=== PATIENT | female | born 1975 | race Caucasian/White ===

== ENCOUNTER 2017-01-26 20:44 | Observation (INO) | payer OTHER ==
[~2017-01-26] VITALS: Ht 154.9 cm; Wt 63.2 kg
[~2017-01-26 20:44] MED LIST: ATIVAN1 MG PO; CARAFATE1 GM PO; Cipro PO; LEVAQUIN500 MG PO; LORTAB 5-325 M1 EACH PO; MACROBID100 MG PO; NORCO 5/3251 TABLET PO; TAMIFLU75 MG PO; Vicodin,Lortab 5/500 PO; ZOFRAN ODT4 MG PO; ZOFRAN4 MG PO
[2017-01-26 22:04] LABS: HEMATOCRIT 39.8 % (36.0-46.0); MCH 28.8 PG (29.0-34.0); MCHC 33.2 G/DL (30.0-36.0); MCV 86.7 FL (83-99); MEAN PLAT.VOLUME 9.4 uM^3 (9.5-12.4); PLATELET COUNT 309 K/uL (156-360); RBC DIS.WIDTH-SD 38.4 % (39-53); RED BLOOD COUNT 4.59 M/uL (3.80-5.20); WHITE BLOOD COUNT 7.4 K/uL (4.1-10.2)
[2017-01-26 22:19] LABS: CHLORIDE 106 mEq/L (99-109); POTASSIUM 4.5 mEq/L (3.7-5.4); SODIUM 140 mEq/L (136-147)
[2017-01-26 22:21] LABS: GLUCOSE 78 mg/dL (70-99)
[2017-01-26 22:22] LABS: ANION GAP 8 MEQ/L (2-14)
[2017-01-26 22:23] LABS: TOTAL BILIRUBIN 0.7 mg/dL (0.0-1.0)
[2017-01-26 22:24] LABS: ALKALINE PHOSPHATASE 75 IU/L (3-129)
[2017-01-26 22:25] LABS: GFR ESTIMATE (CALCULATED) > 59 mL/min/
[2017-01-26 22:26] LABS: UREA NITROGEN (BUN) 13 mg/dL (9-23)
[2017-01-26 22:28] LABS: LIPASE 114 U/L (1.0-51.0)
[2017-01-26 22:39] LABS: AMYLASE 108 IU/L (1-118); QUANTITATIVE HCG < 4.0 MIU/ML
[2017-01-26] MEDS ORDERED: TYLENOL EXTRA500 MG PO (23:41)
[2017-01-27] VITALS (7 sets, daily range): BP systolic 107–126; BP diastolic 58–79
[2017-01-27 00:28] LABS: ADD MIUA? YES; BILIRUBIN NEGATIVE; BLOOD SMALL; COLOR YELLOW ((YELLOW)); GLUCOSE (STRIP) NEGATIVE; KETONES NEGATIVE; LEUKOCYTES NEGATIVE; NITRITE NEGATIVE; PROTEIN (STRIP) NEGATIVE; SPECIFIC GRAVITY 1.015 (1.000-1.030); UROBILINOGEN 0.2 MG/DL (0.2-1.0)
[2017-01-27 00:31] LABS: BACTERIA NONE SEEN /HPF; EPITHELIAL CELLS RARE /HPF; MUCUS TRACE /LPF; RED BLOOD CELLS 0-5 /HPF (0-5); UCUL ADDED? NO; WHITE BLOOD CELLS 0-5 /HPF (0-5)
[2017-01-27 07:43] LABS: HEMATOCRIT 36.7 % (36.0-46.0); MCH 29.3 PG (29.0-34.0); MCHC 33.2 G/DL (30.0-36.0); MEAN PLAT.VOLUME 9.4 uM^3 (9.5-12.4); PLATELET COUNT 258 K/uL (156-360); RBC DIS.WIDTH-CV 12.1 % (11.8-14.6); RBC DIS.WIDTH-SD 38.8 % (39-53); RED BLOOD COUNT 4.17 M/uL (3.80-5.20); WHITE BLOOD COUNT 6.6 K/uL (4.1-10.2)
[2017-01-27 07:46] LABS: INTER. NORMALIZED RATIO 1.1; PROTHROMBIN TIME 11.8 SEC (10.2-12.9)
[2017-01-27 07:49] LABS: PTT 32.9 SEC (25-37)
[2017-01-27 08:08] LABS: ALKALINE PHOSPHATASE 62 IU/L (3-129); ANION GAP 4 MEQ/L (2-14); CHLORIDE 109 MEQ/L (99-109); GFR ESTIMATE (CALCULATED) > 59 mL/min/; GLUCOSE 91 mg/dL (70-99); POTASSIUM 4.1 MEQ/L (3.7-5.4); SAMPLE HEMOLYSIS CHECK 0; SAMPLE ICTERIC CHECK 0; SAMPLE LIPEMIA CHECK 0; SODIUM 141 MEQ/L (136-147); TOTAL BILIRUBIN 0.7 MG/DL (0.0-1.0); UREA NITROGEN (BUN) 11 mg/dL (9-23)
[2017-01-28 04:35] VITALS: BP 120/62
[2017-01-28 06:23] LABS: ANION GAP 10 MEQ/L (2-14); CHLORIDE 105 MEQ/L (99-109); GFR ESTIMATE (CALCULATED) > 59 mL/min/; GLUCOSE 85 mg/dL (70-99); LIPASE 125 U/L (1.0-51.0); POTASSIUM 4.3 MEQ/L (3.7-5.4); SAMPLE HEMOLYSIS CHECK 0; SAMPLE ICTERIC CHECK 0; SAMPLE LIPEMIA CHECK 0; SODIUM 139 MEQ/L (136-147); UREA NITROGEN (BUN) 9 mg/dL (9-23)
[2017-01-28 07:18] VITALS: BP 125/63
[2017-01-28 11:03] VITALS: BP 121/72
== END 2017-01-28 14:15 | disposition home or self-care (01) ==
LOC: EME 20:44 → EDOF 23:49 → 2EASTP 23:49 → ENRESERV 23:50 → 2EASTP 01-27 01:10
PROVIDERS: Internal Medicine
PROC: 0DJ08ZZ Inspection of Upper Intestinal Tract, Via Natural or Artificial Opening Endoscopic (ICD-10-PCS; principal; 2017-01-26)
PROC: 0FCD8ZZ Extirpation of Matter from Pancreatic Duct, Via Natural or Artificial Opening Endoscopic (ICD-10-PCS; principal; 2017-01-26)
DX: K85.90 Acute pancreatitis without necrosis or infection, unspecified (principal); R10.11 Right upper quadrant pain; G43.909 Migraine, unspecified, not intractable, without status migrainosus; I47.1 Supraventricular tachycardia; Z87.891 Personal history of nicotine dependence; Z90.49 Acquired absence of other specified parts of digestive tract; Z82.49 Family history of ischemic heart disease and other diseases of the circulatory system; Z82.0 Family history of epilepsy and other diseases of the nervous system; Z83.49 Family history of other endocrine, nutritional and metabolic diseases
CPT/HCPCS: 74000; 74181; 80048; 80053; 81003; 82150; 83690; 84702; 85027; 85610; 85730; 99281; 99285; G0378; J2250; J2270; J2405; J3010; J7030; J7120